=== PATIENT | female | born 2000 | race Caucasian/White ===

== ENCOUNTER 2022-03-02 16:31 | Emergency (ER) | payer BC ==
[~2022-03-02] VITALS: Ht 167.6 cm; Wt 56.7 kg
[2022-03-02 17:10] LABS: HEMATOCRIT 43.6 % (31.2-41.9); MEAN CORPUSCULAR HEMOGLOBIN 31.9 uug (24.7-32.8); MEAN CORPUSCULAR VOLUME 90.9 fL (75.5-95.3); PLATELET COUNT (AUTO) 266 K/uL (179-408)
[2022-03-02 17:22] LABS: BILIRUBIN,DIRECT 0.2 mg/dL (0.0-0.2); BILIRUBIN,TOTAL 0.4 mg/dL (0.2-1.0); CREATININE 0.9 mg/dL (0.6-1.3); POTASSIUM 3.7 mmol/L (3.5-5.1); TOTAL PROTEIN, SERUM 7.8 g/dL (6.4-8.2)
[2022-03-02 18:31] LABS: *BILIRUBIN,URIN NEGATIVE (NEGATIVE); *CLARITY,URINE CLEAR (CLEAR); *COLOR,URINE YELLOW (YELLOW); *KETONES,URINE NEGATIVE (NEGATIVE); *UROBILINOGEN,URINE 0.2 E.U./dl (NORMAL); LEUKOCYTE ESTERASE ,URINE NEGATIVE (NEGATIVE); NITRITE, URINE NEGATIVE (NEGATIVE); PH,URINE 5.5 (5.0-8.0); UGLUCOSE NEGATIVE (NEGATIVE)
[2022-03-02 18:32] LABS: *BLOOD, URINE TRACE (NEGATIVE)
[2022-03-02 18:33] LABS: *URINE HCG, QUAL NEGATIVE (NEGATIVE); BACTERIA,URINE NONE SEEN /HPF (NONE SEEN); SQUAMOUS EPITHELIAL CELL,UR FEW /HPF (NONE SEEN); WBC,URINE 0-3 /HPF (0-3)
--- NOTE | 2022-03-02 19:05 | NUR ---
Patient presents the ER with a referral the Urgent Care for C/O nonspecific mostly RLQ pain X 1 week. Patient states the pain has became more localized over the last few days in her right lower quadrant. She states it is mild when she stays still but when she coughs or sneezes or laughs or moves she has a localized right lower quadrant abdominal pain. A/O X 4, patient seen by the MD, #20G angio-cath to (RT) A/C, blood collected and sent, and CT completed as per orders. Patient stable on the stretcher in the lowest position, call [place] within reach, and awaiting disposition. Bedside report given to Esther GUERRIER the oncoming nurse.
[2022-03-02 22:28] VITALS: BP 121/73
== END 2022-03-02 22:29 | disposition home or self-care (01) ==
LOC: ER 16:39
DX: R10.31 Right lower quadrant pain (principal)
CPT/HCPCS: 36415; 76856; 83690; 84703; 85025